=== PATIENT | female | born 1940 | race Caucasian/White ===

== ENCOUNTER 2020-09-15 17:52 | Emergency (ER) | payer OTHER, MEDICARE ==
[~2020-09-15] VITALS: Ht 172.7 cm; Wt 68.0 kg
== END 2020-09-15 20:21 | disposition home or self-care (01) ==
LOC: ER 17:52
DX: S61.011A Laceration without foreign body of right thumb without damage to nail, initial encounter (principal); Z23 Encounter for immunization; W45.8XXA Other foreign body or object entering through skin, initial encounter; Y93.G3 Activity, cooking and baking
CPT/HCPCS: 12001; 90471; 99282-25